=== PATIENT | male | born 1945 | race Caucasian/White ===

== ENCOUNTER 2018-06-01 17:36 | Emergency (ER) | payer MEDICARE, OTHER | END 2018-06-01 22:18 | disposition home or self-care (01) | LOC: ERS 17:36 | DX: G93.89 Other specified disorders of brain (principal); R41.3 Other amnesia; E78.5 Hyperlipidemia, unspecified; Z79.82 Long term (current) use of aspirin; Z79.899 Other long term (current) drug therapy | CPT/HCPCS: 99283 ==

== ENCOUNTER 2018-06-07 12:38 | Outpatient (CLI) | payer MEDICARE, OTHER ==
[~2018-06-07 12:38] MED LIST: Gadobenate Dimeglumine 529 MG/1 ML (20ML VIAL) ONE
--- NOTE | 2018-06-07 15:37 | MRI ---
MRI BRAIN WITH AND WITHOUT CONTRAST: DATE: 06/07/18 HISTORY: 72-year-old male with intracranial mass found on outside facility imaging study. COMPARISON: Noncontrast MRI of 06/01/18 from [facility]. TECHNIQUE: Multiple sequences obtained in axial, sagittal, and coronal planes; pre and post IV injection of gado linium-based contrast agent: MultiHance. FINDINGS: There is a large right frontal mass measuring approximately 7 x 5 x 6.5 cm. On the T2 weighted images , there appears to be a CSF cleft between this mass and adjacent brain parenchyma, indicating that t his is extra-axial. It broadly abuts the right frontal dural surface. It causes severe, large region of vasogenic edema in the right frontal lobe extending into the right temporal lobe. It severely effa suhail, and inferiorly displaces the anterior half of the right lateral ventricle. It causes a left to r ight midline shift of approximately 15 mm (1.5 cm). There is also dramatic distortion of the contrala teral left lateral ventricle anterior portion, especially the frontal horn. The third ventricle is di storted to a lesser degree and is not obstructed. There is no obstructive hydrocephalus. There is no intra-axial enhancing lesion. No restricted diffusion or recent hemorrhage. IMPRESSION: Large 7 cm right frontal extra-axial neoplastic tumor causing severe mass effect and severe vasogenic edema: Evidence for meningioma. KYLE Frank POS: [facility]
== END 2018-06-07 12:39 | disposition home or self-care (01) ==
LOC: SCSMRI 12:38
PROVIDERS: ATTEND Neurological Surgery
DX: D33.2 Benign neoplasm of brain, unspecified (principal); G93.6 Cerebral edema
CPT/HCPCS: 36415; 70553; 82565; 85025; 85610; A9579

== ENCOUNTER → 2018-06-12 | Day surgery (SDC) | payer MEDICARE, OTHER ==
[~2018-06-12] MED LIST changes: +CEFAZOLIN/Water 2 GM/20 ML SYRINGE ONE; -Gadobenate Dimeglumine 529 MG/1 ML (20ML VIAL) ONE; +Heparin 10,000 UNITS/1 ML VIAL ONE; +Iopamidol 370 76% 100 ML VIAL ONE; +Lidocaine 1% (PF) 30 ML VIAL ONE
[2018-06-12 09:31] VITALS: BMI 41.5
--- NOTE | 2018-06-14 14:18 | CCL ---
RADIOLOGY PROCEDURE NOTE: Date: 06/12/18 SURGEON: Nolberto Tinoco M.D. PUMP SERVICER SUPERVISOR: None. INDICATION: Right frontal tumor. PROCEDURE: Cerebral angiogram. ANESTHESIA: Local. TECHNIQUE: The patient was brought into the angiogram suite and placed on the table in the supine position. Both groins were prepped and draped in the usual sterile fashion. 1% lidocaine was used to inject the rig ht groin. A 6 Maltese shuttle select catheter was passed over a 125 cm Granados diagnostic catheter, which was passed over an 0.035 angled Glidewire, which was carefully advanced into the aortic arch. W e were unable to access the right common carotid artery with the Granados catheter and therefore, a long Villanueva 2 catheter was placed and formed in the aortic arch. The takeoff of the right common car otid artery was distal into the brachiocephalic arch. After obtaining access to the common carotid ar anabell, I could not get the guide catheter beyond the proximal aspect of the right common carotid arter y due to its aberrant location. As such, I was not able to perform a very meaningful cerebral angiogr am of right common carotid artery, much less an embolization procedure. The catheters were then rem fox. Hemostasis was maintained with manual compression. The procedure came to an end without complic ation.
== END ==
LOC: CCL 08:05
PROVIDERS: ATTEND Neurological Surgery
PROC: [UNRECOGNIZED PROCEDURE] (principal; 2018-06-12)
DX: D32.0 Benign neoplasm of cerebral meninges (principal); Z79.899 Other long term (current) drug therapy; Z88.0 Allergy status to penicillin
CPT/HCPCS: 36223; C1769; C1887; J1644; J2001

== ENCOUNTER 2018-06-14 07:51 | Inpatient (IN) | payer MEDICARE, OTHER ==
--- NOTE | 2018-06-14 07:54 | HP ---
CHIEF COMPLAINT: Brain tumor. HISTORY OF PRESENT ILLNESS: Mr. Mosquera is a 72-year-old male whose family is concerned about hi s behavior recently. Two and a half years ago, he had a series of shoulder operations the family see n the change in behavior was related to 3 anesthetics and recovery. In the last 18 months, things wasserman ve gotten worse. He is not keeping any track of time, was being found in the restroom after hours of being there at night, burning food on the grill by losing track of time frequently, was speaking hayley nts from years ago as happening yesterday. In addition, he is not engaging as funny family member th at he once was, nor does he have much energy for activities that he used to enjoy. He keeps to himse lf and unless prodded, he would not leave the couch. His car keys have been taken by his for fe ar of poor judgment while driving. Dr. Brumfield ordered imaging of the MRI brain and was sent to the ER with a large right frontal lesion. REVIEW OF SYSTEMS: A 10-point review of systems is otherwise negative excluding was stated above in the HPI. PAST MEDICAL HISTORY: Hypercholesterolemia, allergies and shoulder issues. PAST SURGICAL HISTORY: Shoulder surgery in 2016, kidney donation in 2010. FAMILY HISTORY: Father is . Mother is . Children are alive and diagnosed with hype rtension. No family history of brain tumors. SOCIAL HISTORY: The patient is a nonsmoker, does drink occasional alcohol and uses no other illicit drugs. He currently lives with his at home. MEDICATIONS: Cetirizine, Flonase, Crestor, olopatadine HCL, Krill oil and omega 3, Tylenol, Zantac, Protonix, Decadron, aspirin. ALLERGIES: PENICILLIN G. PHYSICAL EXAMINATION: CONSTITUTIONAL: The patient is alert, oriented, no sign of distress. RESPIRATORY: Normal work of breathing room air. CARDIOVASCULAR: Regular rate and rhythm. NEUROLOGIC: Cranial nerves, some decreased right temporal visual field. Extraocular muscles, move h is eyes in all directions with primary gaze without nystagmus. The face is sensate and symmetric. H earing is diminished on both sides chronically. The palate elevates in the midline. The tongue prot rudes in the midline. The shoulder shrug and neck turned are strong. Cerebellar exam: There is no truncal ataxia. NEUROLOGIC: Gait and station are normal. Motor exam: Very fine left pronator drift. No other obvi ous weakness. Sensory: No neglect. IMAGING: MRI dual based large right frontal lesion causing severe mass effect and shift. There is T 2 signal change around it looks to be meningioma. ASSESSMENT AND PLAN: Benign neoplasm of cerebellar meninges. Dr. Barraza has offered craniotomy. We have discussed indications, risks, benefits, alternatives, and expected results from surgery. Ri sks discussed include but are not limited to infection, bleeding, CSF leak, brain damage, significant loss of neurologic function, seizure, stroke, dependents normal care cardiopulmonary, complications of anesthesia or . Long-term complications discussed include but are not limited to, recurrence , and need for further surgery. He understands the risks and is willing to proceed with surgery.
[2018-06-14] MEDS ORDERED: Sodium Chloride 0.9% 20 ML ONE (09:41)
[2018-06-14] MEDS ORDERED: Thrombin 5000 UNITS/5 ML VIAL ONE ×3 (09:42→14:03)
[2018-06-14] MEDS ORDERED: Bacitracin Zinc Ointment 30 gm TUBE ONE (09:42)
[2018-06-14] MEDS ORDERED: Levofloxacin 500 mg/D5W 100 ml Premix Bag ONE (09:49)
[2018-06-14] MEDS ORDERED: Clindamycin/D5W 900 mg/50 ml Premix Bag ONE (09:49)
[2018-06-14] MEDS ORDERED: Lidocaine 0.5%/Epinephrine 1:200,000 50 ml Vial ONE (10:09)
[2018-06-14] MEDS ORDERED: Nitroglycerin 50 MG/250 ML BOT 250 ML ONE (10:14)
[2018-06-14] MEDS ORDERED: levETIRAcetam 500 MG/100 ML PREMIX BAG ONE (10:14)
[2018-06-14] MEDS ORDERED: Fentanyl 100 MCG/2 ML VIAL ONE ×2 (10:25→11:16)
[2018-06-14] MEDS ORDERED: levETIRAcetam 1000 MG/100 ML PREMIX BAG ONE (11:28)
[2018-06-14] MEDS ORDERED: Sodium Chloride 0.9% 10 ML ONE (12:38)
[2018-06-14] MEDS ORDERED: Albumin 5% 500 ML ONE (12:52)
[2018-06-14] MEDS ORDERED: Ondansetron HCl/PF 4 MG/2 ML Vial ONE (14:03)
[2018-06-14] MEDS ORDERED: Vecuronium 10 MG VIAL ONE (14:03)
[2018-06-14] MEDS ORDERED: Glycopyrrolate 0.2 MG/ML 5 ML SYRINGE ONE (14:03)
[2018-06-14] MEDS ORDERED: PROPOFOL 200 MG/20 ML VIAL ONE (14:03)
[2018-06-14] MEDS ORDERED: Esmolol 100 MG/10 ML VIAL ONE (14:03)
[2018-06-14] MEDS ORDERED: Lidocaine 1% PF 5 ML VIAL ONE ×2 (14:03)
[2018-06-14] MEDS ORDERED: Dexamethasone 20 MG/5 ML VIAL ONE (14:03)
[2018-06-14] MEDS ORDERED: Nitroglycerin 50 MG/250 ML BOT ONE (14:03)
[2018-06-14] MEDS ORDERED: Mannitol 12.5 GM/50 ML ONE (14:03)
[2018-06-14] MEDS ORDERED: diphenhydrAMINE 50 MG/ML VIAL IVP PRN (15:33)
[2018-06-14] MEDS ORDERED: HYDROcodone/Acetaminophen 7.5/325 mg Tablet PO PRN (15:33)
[2018-06-14] MEDS ORDERED: Mag-Al 1200 mg/1200 mg/30 ML UDCUP PO PRN (15:33)
[2018-06-14] MEDS ORDERED: Fleet Enema 133 ML BOT PR SCH (15:33)
[2018-06-14] MEDS ORDERED: Cepastat Lozenges 1 LOZ PO PRN (15:33)
[2018-06-14] MEDS ORDERED: Acetaminophen 325 MG TAB PO PRN (15:33)
[2018-06-14] MEDS ORDERED: Zolpidem Tartrate 5 MG TAB PO PRN (15:33)
[2018-06-14] MEDS ORDERED: Ondansetron HCl/PF 4 MG/2 ML Vial IVP PRN ×2 (15:33→16:47)
[2018-06-14] MEDS ORDERED: Labetalol HCl 100 MG/20 ML VIAL SLOW IVP PRN (15:33)
[2018-06-14] MEDS ORDERED: Docusate 100 MG CAP PO PRN (15:33)
[2018-06-14] MEDS ORDERED: hydrALAZINE 20 MG/ML VIAL SLOW IVP PRN (15:33)
[2018-06-14] MEDS ORDERED: Sodium Chloride 0.9% 1,000 ML IV SCH (15:45)
[2018-06-14] MEDS ORDERED: Labetalol HCl 100 MG/20 ML VIAL ONE (16:29)
[2018-06-14] MEDS ORDERED: HYDROmorphone 2 MG/ML VIAL SLOW IVP PRN (16:47)
[2018-06-14] MEDS ORDERED: Promethazine HCl 25 MG/ML VIAL SLOW IVP PRN (16:47)
[2018-06-14] MEDS ORDERED: Morphine Sulfate 2 MG/ML SYRINGE SLOW IVP PRN (16:47)
[2018-06-14] MEDS ORDERED: Promethazine HCl 25 MG/ML VIAL IM PRN (16:47)
[2018-06-14] MEDS ORDERED: Meperidine HCl/PF 25 MG/ML VIAL SLOW IVP PRN (16:47)
[2018-06-14] MEDS ORDERED: Amlodipine 5 MG TAB PO SCH (19:00)
[2018-06-14] MEDS: Dexamethasone 4 MG TAB PO SCH ×2 (19:07→23:59)
[2018-06-14] MEDS: levETIRAcetam 500 MG TAB PO SCH (20:03)
[2018-06-14] MEDS: Rosuvastatin 10 MG TAB PO SCH (20:03)
[2018-06-14] MEDS: Sodium Chloride 0.9% 1,000 ML IV SCH (20:05)
[2018-06-14] MEDS: Melatonin 3 MG TAB PO SCH (20:05)
[2018-06-14] MEDS: CEFAZOLIN/Water 2 GM/20 ML SYRINGE SLOW IVP SCH (20:06)
[2018-06-14 20:49] VITALS: BMI 40.4
[2018-06-14] MEDS: Ketotifen Fumarate 0.025% Ophth Soln 5 ml Bottle EA EYE SCH (21:07)
--- NOTE | 2018-06-14 22:07 | OP ---
DATE OF SURGERY: 06/14/2018 SURGEON: Baljit Barraza M.D. TECHNICAL SYSTEMS ARCHITECT: Ro Song PA-C. PREOPERATIVE INDICATION: Treat mass effect, prevent neurological deterioration. PREOPERATIVE DIAGNOSIS: Large left frontal lobe lesion, extraaxial, likely meningioma. POSTOPERATIVE DIAGNOSIS: Large left frontal lobe lesion, extraaxial, likely meningioma. OPERATIVE PROCEDURE: BrainLAB stereotactic-assisted right frontal craniotomy, tumor resection, opera ting microscope. PREOPERATIVE MEDICATIONS: Ancef 2 grams IV. DRAIN NUMBER: Zero. DRAIN TYPE: None. OPERATIVE DICTATION: The patient was brought to the operating room. General endotracheal anesthesia was induced. The patient's head was immobilized with Esperance reagan headholder and the Esperance at tachment for the operating table. Using the preoperative BrainLAB protocol, MRI scan, the [employer] Reklaim n avigation system, and surface registration technique, we registered the patient's head in 3-dimension al stereotactic space. We went through 2-3 separate registrations until we deemed the system unable to register the patient. The navigated portion of the resection was thereafter based on landmarks ra ther than imaging. We planned a curvilinear incision starting at the root of zygoma and ending just passed the midline o f the forehead. Under planned incision, we infused local anesthetic. The scalp was sterilely preppe d and draped. We opened the right-sided incision with a 10-blade knife and controlled bleeding with bipolar and monopolar cautery. We used monopolar cautery to dissect through subcutaneous tissues to the periosteal layer. We folded the periosteum forward, we notice multiple emissary veins through th e bone. The frontal bone and the temporal bone both had the significant amount of venous egress and folded our scalp flap forward. The temporalis muscle was taken up and under the muscle, there were e missary veins as well. This portended a vascular tumor and therefore we used a high-speed drill and a edward mike to fashion mike holes. We placed a mike hole at the frontal keyhole, the posterior po rtion of the superior temporal line and one in the frontal bone. We planned a frontal craniotomy ext ending into the temporal bone and even the craniotomy edges, we used a high-speed drill. This was ar duous procedure and much longer than was typical, but we were very successful and generating a cranio krystal flap without significant bleeding. We then peeled the dura from the undersurface of the flap an d folded the flap out of the field indeed. The tumor had eroded into the undersurface of the bone, i t was scraped free and then drilled out. There is no obvious remnant at tumor cells and the cranioto my flap and was placed in bacitracin irrigation for the remainder of the case. We turned our attenti on to the dural opening. The tumor had eroded through the dura and into the bone, we cut the dura in a curvilinear fashion. W e extended the dural opening around the edges of the tumor and freed the dura circumferentially. We then brought to the operating room, we then developed a plane around the tumor itself. We could easi ly visualize the interface between tumor and brain. The gliotic brain around the tumor was very soft . The tumor had a bit of the capsule along its edge and we stayed in this plane circumferentially ar ound the tumor laterally. Medially, the tumor extended under the dura towards the midline. We left a shell of tumor medially, so that we can remove the bulk of the tumor and then come back to address medial vessels later. We amputated the shell of the tumor off the main mass of the tumor and we circ umferentially dissected around the tumor mass and removed it. With excellent hemostasis in the surro unding brain and then brought the operating microscope in the field. Under microscopic magnification using microsurgical techniques, we carefully generated a plane betwee n the tumor and the dura, all the attachments of the tumor to the dura were vigorously coagulated wit h bipolar cautery. We dissected medial to the tumor and its interface with the medial frontal lobe. We encountered some vessels medially that required coagulation during dissection and we sacrifice th zechariah. The tumor then folded away from the brain and the dura has one remaining piece. We irrigated c opiously with bacitracin irrigation. We inspected the underside of the dura as well as the falx and found no more obvious tumor, any area of concern was coagulated with bipolar cautery. We irrigated v igorously with bacitracin irrigation. We lined the resection cavity with Surgicel. A generous Peric ranial flap was harvested from the scalp and this was sewn into place where the dura had been removed with the tumor. We reinforced the dural closure with another layer of Surgicel and replaced the sca lp flap with plates and screws. We drilled away all areas where there was tumor involvement, until t here was normal appearing bone. We filled the resection area with bacitracin irrigation and we close d the scalp in anatomic layers. We applied the sterile dressing. [facility] to the [facility]. This was a clean case and no conta mination.
[2018-06-14] MEDS: niCARdipine HCl 25 MG in Sodium Chloride 0.9% 250 ML 240 ML IVPB SCH (23:59)
[2018-06-15] MEDS: Dexamethasone 4 MG TAB PO SCH ×4 (05:33→23:38)
[2018-06-15] MEDS: niCARdipine HCl 25 MG in Sodium Chloride 0.9% 250 ML 240 ML IVPB SCH ×2 (05:33→07:28)
[2018-06-15] MEDS: CEFAZOLIN/Water 2 GM/20 ML SYRINGE SLOW IVP SCH ×2 (05:33→12:32)
[2018-06-15] MEDS: Ketotifen Fumarate 0.025% Ophth Soln 5 ml Bottle EA EYE SCH ×2 (05:44→20:41)
--- NOTE | 2018-06-15 06:46 | PRG ---
DATE OF SERVICE: 06/15/2018 Mr. Mosquera is 1 day out from a large right frontotemporal craniotomy for removal of a very large right frontal extraaxial lesion, likely meningioma. Other than dealing with venous egress channels through the bone itself with a slow and methodical craniotomy, the rest of the resection went well. Mr. Mosquera has had a rather uneventful evening overnight other than blood pressure control issue s. I suspect Mr. Mosquera has underlying hypertension that has gone untreated. We are going to s tart some oral agents today to help with that. The remainder of the vital signs look stable. Mr. Fr hutchison's neurological examination showed that is more alert than he was in clinic, he is interacti ve. He has a greater energy level than he had before surgery. He is moving all his extremities well and I do not find any new lateralizing motor or sensory deficits. The right side of the scalp is st arting to swell, as expected. As mentioned, we will start oral antihypertensives. We will loosen his blood pressure restriction to 140 today. Once he is off the vasoactive drips, he can move out of the ICU. He can start mobilizat ion already and we will have him transfer to a chair and walk with assistance. I think he is doing r easonably well.
[2018-06-15] MEDS: Amlodipine 5 MG TAB PO SCH (07:26)
[2018-06-15] MEDS: HYDROcodone/Acetaminophen 7.5/325 mg Tablet PO PRN (08:56)
[2018-06-15] MEDS: Calcium Carbonate 500 MG TAB PO SCH (08:57)
[2018-06-15] MEDS: levETIRAcetam 500 MG TAB PO SCH ×2 (08:58→20:37)
[2018-06-15] MEDS: Saccharomyces boulardii 250 MG CAP PO SCH (08:58)
[2018-06-15] MEDS: Sodium Chloride 0.9% 1,000 ML IV SCH ×2 (09:44→20:38)
--- NOTE | 2018-06-15 11:33 | PQF ---
Documentation professionals have demanded another addition to the chart. The patient presented with a large right frontal meningioma with surrounding vasogenic edema from the tumor effect. Hopefully this adds something to the outcome of the patient MTDD
[2018-06-15] MEDS: Melatonin 3 MG TAB PO SCH (20:37)
[2018-06-15] MEDS: Rosuvastatin 10 MG TAB PO SCH (20:37)
[2018-06-16] MEDS: HYDROcodone/Acetaminophen 7.5/325 mg Tablet PO PRN ×2 (01:02→12:42)
[2018-06-16] MEDS: Dexamethasone 4 MG TAB PO SCH ×2 (05:36→12:42)
[2018-06-16] MEDS: Ketotifen Fumarate 0.025% Ophth Soln 5 ml Bottle EA EYE SCH (05:37)
[2018-06-16 06:09] LABS: Band 13 % (5-11); Hemoglobin 11.1 g/dL (14.0-18.0); Lymphocytes 4 % (21-51); MDiff Complete? YES; Mean Corpuscular HGB CONC 34.2 g/dL (32.0-36.0); Mean Corpuscular Hemoglobin 32.5 pg (27.0-31.0); Mean Corpuscular Volume 95.2 fL (78.0-98.0); Mean Platelet Volume 7.5 fL (7.4-10.4); Monocytes 2 % (0-10); Neutrophil 81 % (42-75); PLT Morphology Comment Appears Adequate; Platelet Count 154 thou/uL (130-400); RBC Distribution Width 12.1 % (11.5-14.5); White Blood Cell (WBC) Count 17.1 thou/uL (4.8-10.8)
[2018-06-16 06:12] LABS: Anion Gap 12 mmol/L (10-20); BUN (Urea Nitrogen) 32 mg/dL (8.4-25.7); Calc. Creatinine Clearance 98 mL/min (70-130); Calcium 8.2 mg/dL (7.8-10.44); Carbon Dioxide 23 mmol/L (23-31); Chloride 104 mmol/L (98-107); Estimated GFR-MDRD 58; Glucose 300 mg/dL (83-110); Potassium 4.8 mmol/L (3.5-5.1); Sodium 134 mmol/L (136-145)
--- NOTE | 2018-06-16 09:00 | CON ---
DATE OF CONSULTATION: 06/15/2018 HISTORY OF PRESENT ILLNESS: Mr. Mosquera is a very pleasant 72-year-old gentleman who has undergone a craniotomy. He has been hospitalized here before. He says he feels great. He is very quickly interactive at this time. Apparently, he presented with a change in his behavior. Admitting history and physical documents this. Subsequently, he was found to have a lesion in his right frontal area. PAST MEDICAL HISTORY: Remarkable for lipid disorder, shoulder surgeries in the past and a kidney donation in the past. His father and mother . There is family history of hypertension. There is no history of lung disease in early age. SOCIAL HISTORY: He is a nonsmoker, rarely drinks. FAMILY HISTORY: He has a very supportive family. They are in the room with him. REVIEW OF SYSTEMS: 10 point system review completed, otherwise negative. MEDICATIONS: Prior to admission, he was on cetirizine, Flonase, Crestor, Zantac , Protonix. He has been started on Decadron. He has been on aspirin. ALLERGIES: PENICILLIN. PHYSICAL EXAMINATION: GENERAL: He is in no distress, oriented x3. VITAL SIGNS: Heart rate in the 60s, respiratory rates in the teens. Blood pressure 123/99. HEENT: His craniotomy incision is without erythema or drainage. His pupils react. Sclerae anicteric. NECK: Supple, no lymphadenopathy. LUNGS: Clear. HEART: Regular rhythm. S1 and S2 are normal. ABDOMEN: Soft and nontender. EXTREMITIES: Without clubbing, cyanosis, or edema. LABORATORY DATA: There is no lab work except a glucose. IMPRESSION AND PLAN: Status post craniotomy. He had a CBC and metabolic panel in the morning. Other than that, I would continue with current care. In my opinion, he should be stable to move out of the Critical Care Unit. This is a 70 minute consult with greater than 50% of time spent on unit with coordination of care. PAOLO
--- NOTE | 2018-06-16 09:01 | PRG ---
DATE OF SERVICE: 06/16/2018 Mr. Mosquera is 2 days out from a large right frontal craniotomy and resection of meningioma. He has been doing very well since surgery. He moved out of the ICU yesterday. His blood pressure is un iram better control with oral medications. He should be on an oral antihypertensive at discharge. Mr Sharif Mosquera is awake, he is alert, he is oriented. He is moving all 4 extremities. He is conversa nt. His personality is more back to normal according to his family. He is safe for his activities o f daily living. I think he is ready for discharge. He should have follow up with his primary care lima meier about the hypertension, a 2 week followup with us. We went over activity restrictions and w ound care.
[2018-06-16] MEDS: levETIRAcetam 500 MG TAB PO SCH (09:23)
[2018-06-16] MEDS: Saccharomyces boulardii 250 MG CAP PO SCH (09:23)
[2018-06-16] MEDS: Calcium Carbonate 500 MG TAB PO SCH (09:23)
[2018-06-16] MEDS: Amlodipine 5 MG TAB PO SCH (09:23)
[2018-06-16 11:31] VITALS: BP 130/81; TEMP 97.9
[2018-06-16] MEDS: Sodium Chloride 0.9% 1,000 ML IV SCH (12:43)
[2018-06-16] MEDS ORDERED: Dexamethasone 4 MG TAB PO SCH (22:00)
[2018-06-19] MEDS ORDERED: Dexamethasone 4 MG TAB PO SCH (02:00)
[2018-06-20] MEDS ORDERED: Dexamethasone 4 MG TAB PO SCH (14:00)
== END 2018-06-16 14:17 | disposition home or self-care (01) | DRG 27 ==
LOC: SURG A 07:51 → CCU 18:11 → SJJU 06-16 00:53
PROVIDERS: ADMIT Neurological Surgery; ATTEND Neurological Surgery
PROC: 00B10ZZ Excision of Cerebral Meninges, Open Approach (ICD-10-PCS; principal; 2018-06-14)
DX: D32.0 Benign neoplasm of cerebral meninges (principal); I10 Essential (primary) hypertension; E78.00 Pure hypercholesterolemia, unspecified
CPT/HCPCS: 36223; 36415; 36416; 80048; 85007; 85027; 86850; 86900; 86901; 88307; 88331; 88334; 88341; 88342; A4216; C1713; C1769; C1887; G8978-GP-CK; G8979-GP-CI; J0131; J0360; J1100; J1644; J1953; J1956; J2001; J2150; J2405; J2704; J3010; J3490; J7050; J8540; P9045

== ENCOUNTER 2018-09-19 12:57 | Outpatient (CLI) | payer MEDICARE, OTHER ==
[~2018-09-19 12:57] MED LIST changes: -CEFAZOLIN/Water 2 GM/20 ML SYRINGE ONE; +Gadobenate Dimeglumine 529 MG/1 ML (20ML VIAL) ONE; -Heparin 10,000 UNITS/1 ML VIAL ONE; -Iopamidol 370 76% 100 ML VIAL ONE; -Lidocaine 1% (PF) 30 ML VIAL ONE
--- NOTE | 2018-09-19 14:51 | MRI ---
MRI BRAIN WITH AND WITHOUT CONTRAST: Technique: Multiplanar, multisequence MRI images were obtained of the brain. Post contrast images wer e obtained after administration of MultiHance IV. Indications: Benign neoplasm. Post op follow up. Comparison: MRI brain, 06-07-18. The prior MRI revealed a large extraaxial mass in the right frontal c onvexity producing mass effect and vasogenic edema. Meningioma was suspected. FINDINGS: Post-operative changes are now apparent in the right frontal lobe. Craniotomy changes are noted. Ther e is scalp thickening and high T2 signal within the scalp and along the apparent flap consistent with edema or fluid collection. There is an extraaxial fluid collection at the operative site which shows peripheral enhancing measur ing up to 2.5 cm on axial images. There is dural enhancement consistent with post-operative status. T here continues to be vasogenic edema from the right frontal lobe, but less pronounced than on the oliver or study. IMPRESSION: Post-operative changes involving the right frontal lobe since the prior study of 06-07-18. The large e xtraaxial mass in the right frontal convexity has been removed. There is now an extraaxial hematoma a t the operative site measuring up to 2.5 cm. This hematoma shows peripheral enhancement and there is diffuse dural enhancement consistent with post-operative status. Thickening and high T2 signal in the scalp and region of the overlying flap is seen consistent with fluid or edema. There is continued as sociated vasogenic edema in the right frontal lobe. No significant midline shift. POS: [facility]
== END 2018-09-19 12:58 | disposition home or self-care (01) ==
LOC: TBSIIMAG 12:57
PROVIDERS: ATTEND Neurological Surgery
DX: D33.2 Benign neoplasm of brain, unspecified (principal); G97.61 Postprocedural hematoma of a nervous system organ or structure following a nervous system procedure; R60.0 Localized edema; R90.89 Other abnormal findings on diagnostic imaging of central nervous system
CPT/HCPCS: 70553; 82565; A9579

== ENCOUNTER 2018-12-11 13:49 | Outpatient (CLI) | payer MEDICARE, OTHER ==
--- NOTE | 2018-12-11 18:24 | MRI ---
MRI BRAIN WITH AND WITHOUT CONTRAST: INDICATIONS: History of meningioma with prior resection. COMPARISON: 09/19/2018 and 06/07/2018 FINDINGS: Redemonstration of prior postoperative resection of extraaxial mass in the right frontal region. The re is persistent extensive pachymeningeal enhancement of the regional dura that overlies the anterior right convexity. An extraaxial, irregular-shaped mass, underlying the inner table of the right fron jaida bone, is slightly more pronounced in volume on the current exam, at 2 x 0.8 cm in axial dimension s, compared to 1.8 x 0.6 cm in a similar location on the prior exam. This likely relates to slight i nterval growth of residual neoplasm. Encephalomalacia of the anterior right hemisphere with associat ed ex vacuo dilatation is present. There is no significant new midline shift. Prior postoperative f luid collection has largely resolved. Multifocal susceptibility, related to prior surgery, is presen t at the right frontal region. Prominent multilevel retention cyst formation again seen within the i lynda right maxillary sinus and, to a lesser extent, also seen within the anterior left maxillary sin us. IMPRESSION: Prominent pachymeningeal enhancement of the dura overlying the right anterior cerebral hemisphere, re lated to postoperative status and possibly due to residual infiltration by the patient's previous lar ge, dural-based mass. There is a slightly enlarging small extraaxial mass overlying the right convex ity, likely residua from prior resected meningioma. Recommend continued followup. POS: [facility]
== END 2018-12-11 13:50 | disposition home or self-care (01) ==
LOC: TBSIIMAG 13:49
PROVIDERS: ATTEND Neurological Surgery
DX: D33.2 Benign neoplasm of brain, unspecified (principal); Z98.890 Other specified postprocedural states
CPT/HCPCS: 70553; 82565

== ENCOUNTER 2019-06-04 12:48 | Outpatient (CLI) | payer MEDICARE, OTHER ==
[2019-06-04] MEDS ORDERED: Gadobenate Dimeglumine 529 MG/1 ML (20ML VIAL) ONE (13:49)
--- NOTE | 2019-06-04 14:30 | MRI ---
BRAIN MRI WITH AND WITHOUT CONTRAST: DATE: 06/04/2019 COMPARISON: Numerous prior examinations, most recent dated 12/11/2018. HISTORY: Evaluate brain following tumor resection. TECHNIQUE: Multiplanar multisequence MR imaging of the brain is obtained with and without contrast. FINDINGS: The diffusion weighted imaging demonstrates no evidence for acute infarction. There is blooming artifact deep to the right frontal craniotomy site suggesting residual blood produc ts following surgery, less conspicuous than on prior imaging. There is subcortical and deep white matter T2 and FLAIR hyperintensity within the right frontal lobe deep to the right frontal craniotomy site, similar in intensity and distribution when compared to the most recent prior examination. Mild stable ex vacuo hydrocephalus is noted involving the frontal horn of the right lateral ventricle . Polypoid mucosal thickening of the right maxillary sinus Is noted, stable. No midline shift or mass effect is present. Arterial flow voids at the axial level of the skull base appear grossly unremarkable on the T2-weight ed imaging. The postcontrast imaging demonstrates dural enhancement deep to the craniotomy site in the right fron jaida region. This enhancement is less conspicuous than on the 12/11/2018 examination. No discrete masslike enhancement is identified on this examination. No obvious residual tumor is present. Continu ed surveillance imaging is suggested. No abnormal enhancement is noted within the brain parenchyma. IMPRESSION: Right frontal postoperative findings as detailed above. There is dural enhancement deep to the cranio krystal site which is less conspicuous than on the prior examination. No convincing evidence for residual tumor is identified on this examination. Given persistent dural based enhancement, continued surveillance MRI suggested. Transcribed Date/Time: 06/04/2019 2:46 PM
== END 2019-06-04 12:49 | disposition home or self-care (01) ==
LOC: TBSIIMAG 12:48
PROVIDERS: ATTEND Neurological Surgery
DX: D33.2 Benign neoplasm of brain, unspecified (principal); Z98.890 Other specified postprocedural states
CPT/HCPCS: 70553; 82565; A9577

== ENCOUNTER 2025-10-02 16:59 | Inpatient (IN) | payer MEDICARE, OTHER ==
[~2025-10-02 16:59] MED LIST changes: -Gadobenate Dimeglumine 529 MG/1 ML (20ML VIAL) ONE; +Iopamidol-370 76% 500 ML MDV (1 ML CHARGE) ONE
[2025-10-02 17:35] LABS: #Basophils 0.05 10x3/uL (0.0-0.2); #Eosinophils 0.17 10x3/uL (0.0-0.7); #Monocytes 1.01 10x3/uL (0.11-0.59); #Neutrophils 7.83 10x3/uL (1.40-6.50); %Basophils 0.5 % (0.0-1.0); %Eosinophils 1.5 % (0.0-10.0); %Lymphocytes 15.0 % (21.0-51.0); %Monocytes 9.2 % (0.0-10.0); %Neutrophils 71.0 % (42.0-75.0); Hematocrit 41.9 % (42.0-52.0); Hemoglobin 14.2 g/dL (14.0-18.0); Mean Corpuscular Hemoglobin 32.3 pg (27.0-31.0); Mean Corpuscular Volume 95.2 fL (78.0-98.0); Platelet Count 187 10x3/uL (130-400); Red Blood Cell (RBC) Count 4.40 mill/uL (4.70-6.10); White Blood Cell (WBC) Count 11.02 10x3/uL (4.8-10.8)
[2025-10-02 17:47] LABS: INR-International Normal Ratio 1.0; PTT 31.1 sec (22.9-36.1); Prothrombin Time 13.5 sec (12.0-14.7)
[2025-10-02 17:54] LABS: ALT (SGPT) 26 U/L (Less than 45); AST (SGOT) 37 U/L (11-34); Albumin 4.3 g/dL (3.1-4.5); Alkaline Phosphatase 91 U/L (40-110); Anion Gap 21 mmol/L (10-20); BUN (Urea Nitrogen) 18 mg/dL (8.4-25.7); Bilirubin, Total 0.4 mg/dL (0.3-1.2); Calc. Creatinine Clearance 0 mL/min (70-130); Calcium 9.1 mg/dL (7.8-10.44); Carbon Dioxide 15 mmol/L (23-31); Chloride 108 mmol/L (98-107); Globulin 2.8 g/dL (2.4-3.5); Glucose 126 mg/dL (83-110); Lipase 25 U/L (8-78); Potassium 4.5 mmol/L (3.5-5.1); Sodium 139 mmol/L (136-145)
[2025-10-02] MEDS ORDERED: TETANUS, DIPHTHERIA TOX,ADULT (TDVAX) 0.5 ML VIAL IM ONE (18:52)
[2025-10-02] MEDS ORDERED: Ondansetron PF 4 MG/2 ML Vial IVP PRN (18:52)
[2025-10-02] MEDS ORDERED: Acetaminophen 325 MG TAB PO PRN (18:52)
[2025-10-02] MEDS ORDERED: Dextrose 50% Abboject 50 ML SYRINGE SLOW IVP PRN (18:52)
[2025-10-02] MEDS ORDERED: Glucagon 1 MG/ML KIT IM PRN (18:52)
[2025-10-02] MEDS ORDERED: HYDROcodone/Acetaminophen 5/325 mg Tablet PO PRN (18:52)
[2025-10-02] MEDS ORDERED: Methocarbamol 500 MG TAB PO PRN (18:52)
[2025-10-02 20:53] VITALS: BMI 40.1
[2025-10-02] MEDS: Acetaminophen 325 MG TAB PO SCH (21:41)
[2025-10-02] MEDS: Senokot S 8.6-50 MG TAB PO SCH (21:43)
[2025-10-02] MEDS: Methocarbamol 500 MG TAB PO SCH (23:49)
[2025-10-02] MEDS: TETANUS AND DIPHTHERIA TOX/PF 0.5 ML DISP.SYRIN IM SCH (23:50)
[2025-10-03 04:30] LABS: #Basophils Less than 0.03 10x3/uL (0.0-0.2); #Eosinophils 0.03 10x3/uL (0.0-0.7); #Monocytes 1.01 10x3/uL (0.11-0.59); #Neutrophils 9.09 10x3/uL (1.40-6.50); %Basophils 0.2 % (0.0-1.0); %Eosinophils 0.3 % (0.0-10.0); %Lymphocytes 8.2 % (21.0-51.0); %Monocytes 9.1 % (0.0-10.0); %Neutrophils 81.6 % (42.0-75.0); Hematocrit 36.3 % (42.0-52.0); Hemoglobin 12.1 g/dL (14.0-18.0); Mean Corpuscular Hemoglobin 32.0 pg (27.0-31.0); Mean Corpuscular Volume 96.0 fL (78.0-98.0); Platelet Count 162 10x3/uL (130-400); Red Blood Cell (RBC) Count 3.78 mill/uL (4.70-6.10); White Blood Cell (WBC) Count 11.13 10x3/uL (4.8-10.8)
[2025-10-03 04:51] LABS: Anion Gap 13 mmol/L (10-20); BUN (Urea Nitrogen) 16 mg/dL (8.4-25.7); Calc. Creatinine Clearance 92 mL/min (70-130); Calcium 8.7 mg/dL (7.8-10.44); Carbon Dioxide 20 mmol/L (23-31); Chloride 109 mmol/L (98-107); Glucose 130 mg/dL (83-110); Potassium 4.0 mmol/L (3.5-5.1); Sodium 138 mmol/L (136-145)
[2025-10-03] MEDS: Enoxaparin 30 MG (0.3 mL) SYRINGE SC SCH (08:22)
[2025-10-03] MEDS: Transdermal Patch Removal TOP SCH (12:20)
[2025-10-04] MEDS ORDERED: Iopamidol 370 76% 100 ML VIAL ONE (11:04)
[2025-10-04] MEDS: Carvedilol 6.25 MG TAB PO SCH (21:16)
[2025-10-04] MEDS: Rosuvastatin 10 MG TAB PO SCH (21:19)
[2025-10-05] MEDS: hydrALAZINE 20 MG/ML VIAL SLOW IVP PRN (09:44)
[2025-10-05 11:51] LABS: #Basophils 0.05 10x3/uL (0.0-0.2); #Eosinophils 0.23 10x3/uL (0.0-0.7); #Monocytes 1.08 10x3/uL (0.11-0.59); #Neutrophils 7.70 10x3/uL (1.40-6.50); %Basophils 0.5 % (0.0-1.0); %Eosinophils 2.3 % (0.0-10.0); %Lymphocytes 9.3 % (21.0-51.0); %Monocytes 10.7 % (0.0-10.0); %Neutrophils 76.4 % (42.0-75.0); Hematocrit 38.3 % (42.0-52.0); Hemoglobin 12.5 g/dL (14.0-18.0); Mean Corpuscular Hemoglobin 31.7 pg (27.0-31.0); Mean Corpuscular Volume 97.2 fL (78.0-98.0); Platelet Count 140 10x3/uL (130-400); Red Blood Cell (RBC) Count 3.94 mill/uL (4.70-6.10); White Blood Cell (WBC) Count 10.08 10x3/uL (4.8-10.8)
[2025-10-05 12:08] LABS: Anion Gap 13 mmol/L (10-20); BUN (Urea Nitrogen) 16 mg/dL (8.4-25.7); Calc. Creatinine Clearance 109 mL/min (70-130); Calcium 9.0 mg/dL (7.8-10.44); Carbon Dioxide 23 mmol/L (23-31); Chloride 107 mmol/L (98-107); Glucose 109 mg/dL (83-110); Potassium 4.0 mmol/L (3.5-5.1); Sodium 139 mmol/L (136-145)
[2025-10-05 15:56] VITALS: BP 144/86; TEMP 98
== END 2025-10-05 18:06 | disposition home health service (06) | DRG 184 ==
LOC: ERS 16:59 → OBSVTOIN 20:07 → 2SE 20:07
PROVIDERS: ADMIT Surgery; ATTEND Surgery
DX: S22.41XA Multiple fractures of ribs, right side, initial encounter for closed fracture (principal); S22.20XA Unspecified fracture of sternum, initial encounter for closed fracture; S32.039A Unspecified fracture of third lumbar vertebra, initial encounter for closed fracture; V89.2XXA Person injured in unspecified motor-vehicle accident, traffic, initial encounter; S20.219A Contusion of unspecified front wall of thorax, initial encounter; Z79.899 Other long term (current) drug therapy; Z88.0 Allergy status to penicillin; E78.00 Pure hypercholesterolemia, unspecified; Z79.82 Long term (current) use of aspirin
CPT/HCPCS: 36415; 36416; 70450; 70470; 71045; 71260; 72125; 74177; 80048; 80053; 80307; 83690; 84484; 85025; 85610; 85730; 86850; 86900; 86901; 90714; 93005; 94640; 94760; G0390; J0360; J1650; J2060; Q9967